=== PATIENT | female | born 1975 | race Hispanic/Latino ===

== ENCOUNTER 2017-12-30 19:15 | Observation (INO) | payer SELFPAY ==
[2017-12-30 20:28] LABS: #Basophils 0.1 thou/uL (0.0-0.2); #Eosinphils 0.1 thou/uL (0.0-0.7); #Lymphocytes 3.1 thou/uL (1.20-3.40); #Monocytes 0.6 thou/uL (0.11-0.59); #Neutrophils 6.3 thou/uL (1.40-6.50); %Basophils 0.5 % (0.0-1.0); %Eosinophils 0.9 % (0.0-10.0); %Lymphocytes 30.6 % (21.0-51.0); %Monocytes 5.5 % (0.0-10.0); %Neutrophils 62.5 % (42.0-75.0); Hemoglobin 15.4 g/dL (12.0-16.0); Mean Corpuscular HGB CONC 33.6 g/dL (32.0-36.0); Mean Corpuscular Hemoglobin 28.9 pg (27.0-31.0); Mean Platelet Volume 8.1 fL (7.4-10.4); Platelet Count 334 thou/uL (130-400); RBC Distribution Width 11.6 % (11.5-14.5); Red Blood Cell (RBC) Count 5.32 mill/uL (4.20-5.40); White Blood Cell (WBC) Count 10.1 thou/uL (4.8-10.8)
[2017-12-30 20:40] LABS: ALT (SGPT) 15 U/L (8-55); AST (SGOT) 12 U/L (5-34); Albumin 4.1 g/dL (3.5-5.0); Alkaline Phosphatase 91 U/L (40-150); Anion Gap 14 mmol/L (10-20); BUN (Urea Nitrogen) 33 mg/dL (7.0-18.7); Bilirubin, Total 0.5 mg/dL (0.2-1.2); Calc. Creatinine Clearance 0 mL/min (70-130); Calcium 9.7 mg/dL (7.8-10.44); Carbon Dioxide 28 mmol/L (22-29); Chloride 102 mmol/L (98-107); Estimated GFR-MDRD 47; Globulin 3.5 g/dL (2.4-3.5); Glucose 122 mg/dL (70-105); Lipase 8 U/L (8-78); Potassium 4.3 mmol/L (3.5-5.1); Protein, Total 7.6 g/dL (6.0-8.3); Sodium 140 mmol/L (136-145)
[2017-12-30 20:41] LABS: BHCG - Serum Negative (NEGATIVE); Pregs Control Background? CLEAR/WHITE (CLR/WHITE); Pregs Control Bar Appear? YES (CONTROL BAR)
--- NOTE | 2017-12-30 21:04 | CT ---
CT OF THE HEAD WITHOUT CONTRAST 12/30/17 COMPARISON: None. HISTORY: Left sided deficit. TECHNIQUE: Serial axial CT imaging at 5 mm intervals from vertex through the skull base without contrast. FINDINGS: The imaged maxillary sinus, anterior ethmoid air cells and frontal sinus on the left are opacified. T here is no displaced calvarial fracture. No intracranial hemorrhage, midline shift, mass effect, or v entricular enlargement. IMPRESSION: Left sided paranasal sinus disease. No intracranial hemorrhage. POS: [facility]
--- NOTE | 2017-12-30 21:05 | RAD ---
PORTABLE UPRIGHT FRONTAL CHEST RADIOGRAPH: 12/30/17 COMPARISON: 03/01/13. HISTORY: Altered mental status, hyperglycemia. FINDINGS: Mild increased linear density in the lateral left base suggests volume loss or scar. No pneumothorax or pleural fluid. No focal consolidation or alveolar edema. IMPRESSION: No acute findings. POS: [facility]
[2017-12-31] MEDS ORDERED: Ondansetron PF 4 MG/2 ML Vial IVP PRN (00:51)
[2017-12-31] MEDS ORDERED: Ondansetron ODT 4 MG TAB SL PRN (00:51)
[2017-12-31 01:40] VITALS: BMI 36.3
[2017-12-31] MEDS: Acetaminophen 325 MG TAB PO PRN ×2 (03:22→08:41)
[2017-12-31] MEDS ORDERED: Dextrose 50% Abboject 50 ML SYRINGE SLOW IVP PRN (04:32)
[2017-12-31] MEDS ORDERED: HumaLOG 300 UNITS/3 ML VIAL SC PRN (04:32)
[2017-12-31] MEDS ORDERED: Dextrose 5% in Water 1,000 ML IV PRN (04:32)
[2017-12-31] MEDS: Sodium Chloride 0.9% 1,000 ML IV SCH ×3 (05:24→22:42)
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
[2017-12-31] MEDS: HumaLOG 300 UNITS/3 ML VIAL SC PRN ×3 (06:08→18:01)
[2017-12-31] MEDS: Aspirin 81 mg Enteric Coated Tablet PO SCH (08:41)
[2017-12-31] MEDS: HumaLOG 300 UNITS/3 ML VIAL SC SCH ×2 (08:42→22:30)
[2017-12-31] MEDS: Insulin Glargine 55 UNITS in Pre-Filled Syringe 1 EACH SC SCH (08:43)
[2017-12-31] MEDS ORDERED: Non-Formulary Item 1 EACH (Insulin Detemir 100 Units/Ml [Levemir] 55 UNITS) SC SCH (09:00)
[2017-12-31] MEDS ORDERED: Liraglutide [Victoza 2-Pak] 1.2 MG SC SCH (09:00)
--- NOTE | 2017-12-31 11:57 | MRI ---
MRI BRAIN WITHOUT CONTRAST: Date: 12/31/17 HISTORY: TIA. Altered mental status. Left-sided deficit. FINDINGS: Correlation is made with the CT scan from the previous night. No restricted diffusion is seen. No evidence of infarct, hemorrhage, midline shift, or abnormal extra -axial fluid collections are noted. The ventricular size is appropriate and the basilar cisterns are patent. There is mucosal disease in the paranasal sinuses. There is fluid in the mastoid air cells. N o tonsillar herniation is seen. IMPRESSION: No evidence of acute intracranial process. POS: [facility]
[2017-12-31] MEDS ORDERED: Acetaminophen 325 MG TAB PO PRN (16:23)
--- NOTE | 2017-12-31 17:22 | PDOC.PN ---
- Subjective Encounter Start Date: 12/31/17 Encounter Start Time: 17:19 Patient sitting up in bed with several family members at home. She reports some numbness and tingling on left side, mainly her hand. She reports sugars over 600 at home. Sugars have been 300 here. She denies chest pain, shortness of breath. She underwent echo, results pending. - Objective Resuscitation Status: Resuscitation Status FULL:Full Resuscitation MAR Reviewed: Yes Vital Signs & Weight: Vital Signs (12 hours) Temp Pulse Pulse Pulse Resp BP BP 12/31/17 15:53 98.8 F 75 20 12/31/17 11:51 98.7 F 89 16 12/31/17 10:54 82 89 100/55 L 109/73 12/31/17 07:59 98.8 F 76 16 BP Pulse Ox 12/31/17 15:53 113/66 95 12/31/17 11:51 109/73 96 12/31/17 10:54 12/31/17 07:59 105/71 96 Weight Weight 186 lb 1.6 oz I&O: 12/30/17 12/31/17 01/01/18 06:59 06:59 06:59 Intake Total 300 Output Total 0 Balance 300 Result Diagrams: 12/30/17 20:15 12/30/17 20:15 Additional Labs: Accuchecks 12/31/17 12/31/17 12/31/17 16:40 10:40 05:32 POC Glucose 308 H 254 H 269 H 12/31/17 12/30/17 01:34 19:51 POC Glucose 300 H 102 Radiology Reviewed by me: Yes EKG Reviewed by me: Yes Phys Exam - Physical Examination Constitutional: NAD HEENT: PERRLA, moist MMs, sclera anicteric, 2+ tonsils Neck: no nodes, no JVD Respiratory: no wheezing, no rales, no rhonchi, clear to auscultation bilateral Cardiovascular: RRR, no significant murmur, no rub Gastrointestinal: soft, non-tender, no distention, positive bowel sounds Obese Musculoskeletal: no edema, pulses present Neurological: moves all 4 limbs 4+ on the left Lymphatic: no nodes Psychiatric: normal affect, A&O x 3 Skin: no rash, normal turgor, cap refill <2 seconds Dx/Plan (1) TIA (transient ischemic attack) Code(s): G45.9 - TRANSIENT CEREBRAL ISCHEMIC ATTACK, UNSPECIFIED Status: Acute (2) Diabetes mellitus Code(s): E11.9 - TYPE 2 DIABETES MELLITUS WITHOUT COMPLICATIONS Status: Acute (3) Acute kidney failure Status: Acute (4) Hypertension Code(s): I10 - ESSENTIAL (PRIMARY) HYPERTENSION Status: Acute - Plan cont current plan of care, plan discussed w/ family, DVT proph w/SCDs * Education given on medications and dietary recommendations, she reports elevated sugars at home and noncompliant with diabetic diet. * Continue aspirin and atorvastatin daily for TIA * Await echocardiogram results * Neurology following, appreciate recommendations * MRI brain negative for CVA * Monitor sugars and continue with insulin, adjustments pending patient progress. Add diabetic diet * MILVIA- hold lisinopril, BP stable without it and recheck BMP * IF results negative likely discharge home with outpatient follow-up and continued medical management
[2017-12-31 17:47] LABS: Anion Gap 11 mmol/L (10-20); BUN (Urea Nitrogen) 25 mg/dL (7.0-18.7); Calc. Creatinine Clearance 129 mL/min (70-130); Calcium 8.8 mg/dL (7.8-10.44); Carbon Dioxide 23 mmol/L (22-29); Chloride 104 mmol/L (98-107); Estimated GFR-MDRD 85; Glucose 358 mg/dL (70-105); Potassium 4.2 mmol/L (3.5-5.1); Sodium 134 mmol/L (136-145)
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
[2017-12-31] MEDS ORDERED: Non-Formulary Item 1 EACH (Insulin Detemir [Levemir] 30 UNIT) SQ SCH (21:00)
[2017-12-31] MEDS ORDERED: Atorvastatin Calcium 40 MG TAB PO SCH (21:00)
[2017-12-31] MEDS ORDERED: Insulin Glargine 30 UNITS in Pre-Filled Syringe 1 EACH SC SCH (21:00)
[2018-01-01 05:58] LABS: #Basophils 0.1 thou/uL (0.0-0.2); #Eosinphils 0.1 thou/uL (0.0-0.7); #Lymphocytes 2.8 thou/uL (1.20-3.40); #Monocytes 0.5 thou/uL (0.11-0.59); #Neutrophils 4.4 thou/uL (1.40-6.50); %Basophils 0.7 % (0.0-1.0); %Eosinophils 1.5 % (0.0-10.0); %Lymphocytes 35.6 % (21.0-51.0); %Monocytes 6.3 % (0.0-10.0); %Neutrophils 55.9 % (42.0-75.0); Mean Corpuscular HGB CONC 33.6 g/dL (32.0-36.0); Mean Corpuscular Hemoglobin 28.2 pg (27.0-31.0); Mean Platelet Volume 8.3 fL (7.4-10.4); Platelet Count 259 thou/uL (130-400); RBC Distribution Width 11.2 % (11.5-14.5); Red Blood Cell (RBC) Count 4.62 mill/uL (4.20-5.40); White Blood Cell (WBC) Count 7.8 thou/uL (4.8-10.8)
[2018-01-01 06:09] LABS: Anion Gap 9 mmol/L (10-20); BUN (Urea Nitrogen) 19 mg/dL (7.0-18.7); Calc. Creatinine Clearance 147 mL/min (70-130); Calcium 8.9 mg/dL (7.8-10.44); Carbon Dioxide 27 mmol/L (22-29); Cardiac Risk 4.7 (Less than 4.5); Chloride 107 mmol/L (98-107); Cholesterol 170 mg/dl (< 200 Desired); Estimated GFR-MDRD Greater than 90; Glucose 169 mg/dL (70-105); HDL Cholesterol 36 mg/dL (>60 Neg Risk); LDL Cholesterol, Calculated 92 mg/dL; Potassium 3.7 mmol/L (3.5-5.1); Sodium 139 mmol/L (136-145); Triglycerides 212 mg/dL (Less than 150)
[2018-01-01] MEDS: HumaLOG 300 UNITS/3 ML VIAL SC PRN ×2 (06:20→12:00)
[2018-01-01] MEDS: Aspirin 81 mg Enteric Coated Tablet PO SCH (08:41)
[2018-01-01] MEDS: Sodium Chloride 0.9% 1,000 ML IV SCH (08:42)
[2018-01-01] MEDS: Insulin Glargine 55 UNITS in Pre-Filled Syringe 1 EACH SC SCH (08:44)
[2018-01-01] MEDS: HumaLOG 300 UNITS/3 ML VIAL SC SCH (08:45)
[2018-01-01 11:57] VITALS: TEMP 99
[2018-01-01 13:36] VITALS: BP 136/79
--- NOTE | 2018-01-02 10:31 | DIS ---
DATE OF ADMISSION: 12/30/2017 DATE OF DISCHARGE: 01/01/2018 PRIMARY CARE PHYSICIAN: Lynn Arvizu NP CONSULTANTS: Dr. Lott, Neurology. PROCEDURES: The patient had a brain CT on 12/30/2017 which showed left-sided paranasal sinus disease . No intracranial hemorrhage. The patient had a chest x-ray that showed no acute findings. The pat ient had a brain MRI which showed no evidence of acute intracranial process. The patient had an echo cardiogram which showed ejection fraction of 60-65%, no obvious QRS or intracardiac thrombus or mass was seen. She did have some structurally normal aortic valves, trace tricuspid regurgitation. DISCHARGE DIAGNOSES: 1. Transient ischemic attack. 2. Diabetes. 3. Acute kidney injury which improved while the patient was admitted. 4. Hyperlipidemia. HOSPITAL COURSE: Pleasant 42-year-old female who was admitted through the emergency room with a past medical history of diabetes mellitus and hyperlipidemia, and presented to the ER with left handed nu mbness and tingling. Per the patient, she had woken up at 3:00 o'clock that morning and was having s ome left hand and foot numbness and tingling sensation. Reports that her blood glucose had been very high in the 600s the day before admission. She did deny any facial droop, slurred speech or any oth er symptoms of a CVA. MRI and brain CT were negative for any infarct. Echocardiogram showed an ejec tion fraction of 55-60%. Blood sugars trended down and were better controlled prior to discharge. T he patient was started on Lipitor for a triglyceride level up to 12. The patient reports the day of discharge she feels much better. Denies any numbness and tingling, able to ambulate without assistan ce. Dr. Lott with Neurology was able to see the patient on this hospitalization. It was recommend ed that she take an aspirin on a daily basis to work with her primary care doctor to reduce stress le vels, improve her risk factor modifications and follow up with the neurologist on an outpatient basis for further evaluation of possible cervical spine disease which may be some cause of her numbness an d tingling that she is experiencing in her upper extremities. Dr. Lott agreed with plan to dischar ge home if echocardiogram did not show any obvious defects. Case discussed with Dr. Song, who agreed with discharge plan. The patient was discharged home. REVIEW OF SYSTEMS: The patient was examined by me on discharge. CONSTITUTIONAL: Denied any chills, fever, denied any weakness. EYES: Denied any eye pain or vision changes. ENT: Denied any pain of ears, nose or throat. CARDIOVASCULAR: Denied any chest pain, palpitations. RESPIRATORY: Denied any shortness of breath. Denied any cough. GI: Denied any abdominal pain, denied any nausea, vomiting, diarrhea. : Female. Denied any dysuria, hematuria. MUSCULOSKELETAL: Reports that she has had some intermittent numbness and tingling to bilateral arms which is transient. She denied any falls or any injuries. SKIN: Denies any rashes, skin changes. NEUROLOGIC: Denies any focal weakness. Does report intermittent numbness and tingling to upper extr emities. PHYSICAL EXAMINATION: VITAL SIGNS: On discharge, blood pressure 140/70, pulse is 97, respirations 16, temperature 98.4, pu lse is 66. CONSTITUTIONAL: The patient was in no distress. HEAD: Head is atraumatic, normocephalic. EYES: Pupils are equally round and reactive to light. Ex traocular muscles are intact. No distinct nystagmus. ENT: Mouth exam normal. Mucous membranes are moist. NECK: Normal range of motion. Trachea is midline. No tenderness on palpation. RESPIRATORY/CHEST: Breath sounds were clear. No respiratory distress. CARDIOVASCULAR: S1, S2 heart sounds are normal. ABDOMEN: Female. Nontender on palpation. Bowel sounds are heard x4. BACK: Normal inspection, normal range of motion, no tenderness. EXTREMITIES: Upper extremities. The patient has normal range of motion. Sensation was intact. Rad ial pulse bilaterally equal. Lower extremities, normal range of motion. Inspection was normal. Mot or strength was normal. Sensation was intact. Pedal pulses equal bilaterally. NEUROLOGIC: The patient was oriented to person, place and time. Speech was normal. Cranial nerves were intact. No focal or sensory deficits. SKIN: Dry, warm and normal in color. PSYCHIATRIC: The patient had normal affect. HOME MEDICATIONS: The patient was resumed on home medications which include NovoLog 15 units subcu b.i.d., Levemir 30 units subcutaneously q.p.m., Levemir 55 subcu q.a.m., Victoza 1.2 mg subcu q.a.m., lisinopril 5 mg p.o. daily, aspirin 81 mg p.o. daily and Lipitor 40 mg p.o. daily, aspirin and Lipi tor were new. Home medications were added at this hospitalization. ALLERGIES: No known drug allergies. CONDITION: Patient's condition is stable. DISCHARGE PLAN: The patient will be discharged home. Referral; the patient instructed to follow up with primary care doctor, Lynn Arvizu NP within [address] Houser office to make a first available appointment.
== END 2018-01-01 13:23 | disposition home or self-care (01) ==
LOC: ERS 19:15 → 2SE 21:45
PROVIDERS: ADMIT Internal Medicine; ATTEND Internal Medicine
DX: G45.9 Transient cerebral ischemic attack, unspecified (principal); E11.9 Type 2 diabetes mellitus without complications; E78.5 Hyperlipidemia, unspecified; N17.9 Acute kidney failure, unspecified
CPT/HCPCS: 36415; 36416; 70450; 70551; 71045; 80048; 80053; 80061; 83690; 84703; 85025; 90471; 90686; 90732; 93005; 93306; 96360; 96361; G0008; G0009; G0378; G8978-GP-CI; G8979-GP-CH; G8987-GO-CI; G8988-GO-CI; G8989-GO-CI; G8996-GN-CH; G8997-GN-CH; G8998-GN-CH

== ENCOUNTER 2018-04-06 22:51 | Emergency (ER) | payer SELFPAY ==
[2018-04-06] MEDS ORDERED: Proparacaine 0.5% Opth 15 ML BOT ONE (23:44)
[2018-04-06] MEDS ORDERED: Fluorescein Opthalmic Strip ONE (23:44)
== END 2018-04-07 00:19 | disposition home or self-care (01) ==
LOC: ERS 22:51
DX: H10.9 Unspecified conjunctivitis (principal); H92.09 Otalgia, unspecified ear; E11.9 Type 2 diabetes mellitus without complications; E78.5 Hyperlipidemia, unspecified; Z79.4 Long term (current) use of insulin; Z79.899 Other long term (current) drug therapy
CPT/HCPCS: 99283

== ENCOUNTER 2022-03-13 12:02 | Emergency (ER) | payer SELFPAY | END 2022-03-13 13:07 | disposition home or self-care (01) | LOC: ERS 12:02 | DX: R05.9 Cough, unspecified (principal); Z20.822 Contact with and (suspected) exposure to COVID-19; E11.9 Type 2 diabetes mellitus without complications; E78.5 Hyperlipidemia, unspecified; Z79.4 Long term (current) use of insulin | CPT/HCPCS: 99283; U0003; U0005 ==

== ENCOUNTER 2024-01-04 12:05 | Emergency (ER) | payer BC, OTHER ==
[2024-01-04] MEDS ORDERED: Acetaminophen 500 MG TAB ONE (12:30)
[2024-01-04] MEDS ORDERED: Ketorolac Tromethamine 30 MG (1 mL) VIAL ONE (12:31)
[2024-01-04 12:52] LABS: #Basophils 0.06 10x3/uL (0.0-0.2); %Basophils 0.6 % (0.0-1.0); %Eosinophils 2.9 % (0.0-10.0); %Lymphocytes 24.2 % (21.0-51.0); %Monocytes 6.4 % (0.0-10.0); %Neutrophils 65.4 % (42.0-75.0); Hematocrit 37.4 % (36.0-47.0); Hemoglobin 12.3 g/dL (12.0-16.0); Mean Corpuscular HGB CONC 32.9 g/dL (32.0-36.0); Mean Corpuscular Hemoglobin 27.9 pg (27.0-31.0); Mean Corpuscular Volume 84.8 fL (78.0-98.0); Mean Platelet Volume 10.1 fL (7.4-10.4); Platelet Count 417 10x3/uL (130-400); RBC Distribution Width 11.9 % (11.5-14.5); Red Blood Cell (RBC) Count 4.41 mill/uL (4.20-5.40)
[2024-01-04] MEDS ORDERED: Boostrix 0.5 ML (Tdap) VIAL (>/=7 yrs of age) ONE (13:01)
[2024-01-04 13:17] LABS: ALT (SGPT) 10 U/L (8-55); AST (SGOT) 13 U/L (5-34); Albumin 3.3 g/dL (3.5-5.0); Alkaline Phosphatase 116 U/L (40-110); Anion Gap 13 mmol/L (10-20); BUN (Urea Nitrogen) 29 mg/dL (7.0-18.7); Bilirubin, Total 0.2 mg/dL (0.2-1.2); CRP,High Sensitivity (Inhouse) 3.64 mg/dL (< or = 0.5); Calc. Creatinine Clearance 0 mL/min (70-130); Carbon Dioxide 25 mmol/L (22-29); Chloride 102 mmol/L (98-107); Estimated GFR 43; Globulin 4.4 g/dL (2.4-3.5); Glucose 246 mg/dL (70-105); Potassium 4.8 mmol/L (3.5-5.1); Protein, Total 7.7 g/dL (6.0-8.3); Sodium 135 mmol/L (136-145)
[2024-01-04] MEDS ORDERED: Lidocaine 2% PF 5 ML VIAL ONE (13:55)
== END 2024-01-04 15:21 | disposition home or self-care (01) ==
LOC: ERS 12:05
DX: L02.611 Cutaneous abscess of right foot (principal); E11.9 Type 2 diabetes mellitus without complications; Z23 Encounter for immunization
CPT/HCPCS: 10060; 80053; 83605; 85025; 86141; 87040; 87070; 87077; 87186; 87205; 90471; 90715; 96372; J1885

== ENCOUNTER 2024-02-12 13:36 | Emergency (ER) | payer BC ==
[2024-02-12 15:24] LABS: #Basophils 0.04 10x3/uL (0.0-0.2); %Basophils 0.7 % (0.0-1.0); %Eosinophils 2.4 % (0.0-10.0); %Lymphocytes 31.1 % (21.0-51.0); %Monocytes 5.5 % (0.0-10.0); %Neutrophils 59.9 % (42.0-75.0); Hematocrit 37.1 % (36.0-47.0); Hemoglobin 12.1 g/dL (12.0-16.0); Mean Corpuscular HGB CONC 32.6 g/dL (32.0-36.0); Mean Corpuscular Hemoglobin 27.8 pg (27.0-31.0); Mean Corpuscular Volume 85.3 fL (78.0-98.0); Mean Platelet Volume 9.7 fL (7.4-10.4); Platelet Count 386 10x3/uL (130-400); RBC Distribution Width 12.4 % (11.5-14.5); Red Blood Cell (RBC) Count 4.35 mill/uL (4.20-5.40)
[2024-02-12 15:40] LABS: CRP,High Sensitivity (Inhouse) 0.28 mg/dL (< or = 0.5)
[2024-02-12 15:49] LABS: ALT (SGPT) 30 U/L (8-55); AST (SGOT) 22 U/L (5-34); Albumin 3.4 g/dL (3.5-5.0); Alkaline Phosphatase 157 U/L (40-110); Anion Gap 14 mmol/L (10-20); BUN (Urea Nitrogen) 16 mg/dL (7.0-18.7); Bilirubin, Total 0.3 mg/dL (0.2-1.2); Calc. Creatinine Clearance 0 mL/min (70-130); Calcium 9.2 mg/dL (7.8-10.44); Carbon Dioxide 28 mmol/L (22-29); Chloride 99 mmol/L (98-107); Estimated GFR 59; Globulin 3.7 g/dL (2.4-3.5); Glucose 424 mg/dL (70-105); Potassium 4.9 mmol/L (3.5-5.1); Protein, Total 7.1 g/dL (6.0-8.3); Sodium 136 mmol/L (136-145)
== END 2024-02-12 17:25 | disposition home or self-care (01) ==
LOC: ERS 13:36
DX: I73.9 Peripheral vascular disease, unspecified (principal); E11.65 Type 2 diabetes mellitus with hyperglycemia
CPT/HCPCS: 36415; 80053; 83605; 85025; 86141

== ENCOUNTER 2024-10-30 12:06 | Outpatient (CLI) | payer BC | END 2024-10-30 12:07 | disposition home or self-care (01) | LOC: BICRAD 12:06 | PROVIDERS: ATTEND Family Medicine | DX: M25.561 Pain in right knee (principal); Z91.81 History of falling ==

== ENCOUNTER 2024-12-25 07:51 | Observation (INO) | payer BC ==
[2024-12-25 08:26] LABS: #Basophils 0.03 10x3/uL (0.0-0.2); #Eosinophils 0.14 10x3/uL (0.0-0.7); #Monocytes 0.38 10x3/uL (0.11-0.59); #Neutrophils 3.98 10x3/uL (1.40-6.50); %Basophils 0.4 % (0.0-1.0); %Eosinophils 2.1 % (0.0-10.0); %Lymphocytes 31.5 % (21.0-51.0); %Monocytes 5.7 % (0.0-10.0); %Neutrophils 59.6 % (42.0-75.0); Hematocrit 36.1 % (36.0-47.0); Hemoglobin 11.9 g/dL (12.0-16.0); Mean Corpuscular Hemoglobin 27.8 pg (27.0-31.0); Mean Corpuscular Volume 84.3 fL (78.0-98.0); Platelet Count 308 10x3/uL (130-400); Red Blood Cell (RBC) Count 4.28 mill/uL (4.20-5.40); White Blood Cell (WBC) Count 6.69 10x3/uL (4.8-10.8)
[2024-12-25 08:42] LABS: ALT (SGPT) 30 U/L (Less than 34); AST (SGOT) 55 U/L (11-34); Albumin 3.4 g/dL (3.1-4.5); Alkaline Phosphatase 103 U/L (40-110); Anion Gap 12 mmol/L (10-20); BUN (Urea Nitrogen) 21 mg/dL (9.8-20.1); Bilirubin, Total 0.3 mg/dL (0.3-1.2); Calc. Creatinine Clearance 0 mL/min (70-130); Calcium 9.1 mg/dL (7.8-10.44); Carbon Dioxide 25 mmol/L (22-29); Chloride 105 mmol/L (98-107); Globulin 2.9 g/dL (2.4-3.5); Glucose 72 mg/dL (70-105); Lipase 12 U/L (8-78); Potassium 3.8 mmol/L (3.5-5.1); Sodium 138 mmol/L (136-145)
[2024-12-25] MEDS ORDERED: Ondansetron PF 4 MG/2 ML Vial ONE (08:43)
[2024-12-25 08:45] LABS: INR-International Normal Ratio 1.0; PTT 30.7 sec (22.9-36.1); Prothrombin Time 13.2 sec (12.0-14.7)
[2024-12-25] MEDS ORDERED: Iopamidol-370 76% 500 ML MDV (1 ML CHARGE) ONE (10:30)
[2024-12-25 12:45] LABS: Hematocrit 32.9 % (36.0-47.0); Hemoglobin 10.4 g/dL (12.0-16.0)
[2024-12-25] MEDS ORDERED: hydrALAZINE 20 MG/ML VIAL SLOW IVP PRN (14:05)
[2024-12-25] MEDS ORDERED: Dextrose 50% Abboject 50 ML SYRINGE SLOW IVP PRN (14:05)
[2024-12-25] MEDS ORDERED: Ondansetron PF 4 MG/2 ML Vial IVP PRN (14:05)
[2024-12-25] MEDS ORDERED: Glucagon 1 MG/ML KIT IM PRN (14:05)
[2024-12-25 15:31] LABS: Hematocrit 32.2 % (36.0-47.0); Hemoglobin 10.1 g/dL (12.0-16.0)
[2024-12-25] MEDS: TETANUS, DIPHTHERIA TOX,ADULT (TDVAX) 0.5 ML VIAL IM ONE (17:03)
[2024-12-25] MEDS: Methocarbamol 500 MG TAB PO PRN (17:30)
[2024-12-25 18:13] VITALS: BMI 37.0
[2024-12-25] MEDS: Senokot S 8.6-50 MG TAB PO SCH (19:45)
[2024-12-25] MEDS: Transdermal Patch Removal TOP SCH (19:46)
[2024-12-25] MEDS: Insulin Glargine 30 UNITS/0.3 ML VIAL SC SCH (20:34)
[2024-12-25] MEDS: Acetaminophen 325 MG TAB PO PRN (20:37)
[2024-12-26 06:36] LABS: #Basophils 0.04 10x3/uL (0.0-0.2); #Eosinophils 0.18 10x3/uL (0.0-0.7); #Monocytes 0.46 10x3/uL (0.11-0.59); #Neutrophils 3.08 10x3/uL (1.40-6.50); %Basophils 0.7 % (0.0-1.0); %Eosinophils 3.2 % (0.0-10.0); %Lymphocytes 32.3 % (21.0-51.0); %Monocytes 8.2 % (0.0-10.0); %Neutrophils 55.1 % (42.0-75.0); Hematocrit 32.1 % (36.0-47.0); Hemoglobin 10.1 g/dL (12.0-16.0); Mean Corpuscular Hemoglobin 27.6 pg (27.0-31.0); Mean Corpuscular Volume 87.7 fL (78.0-98.0); Platelet Count 269 10x3/uL (130-400); Red Blood Cell (RBC) Count 3.66 mill/uL (4.20-5.40); White Blood Cell (WBC) Count 5.60 10x3/uL (4.8-10.8)
[2024-12-26 06:54] LABS: Anion Gap 11 mmol/L (10-20); BUN (Urea Nitrogen) 18 mg/dL (9.8-20.1); Calc. Creatinine Clearance 131 mL/min (70-130); Calcium 8.4 mg/dL (7.8-10.44); Carbon Dioxide 28 mmol/L (22-29); Chloride 102 mmol/L (98-107); Glucose 82 mg/dL (70-105); Potassium 3.7 mmol/L (3.5-5.1); Sodium 137 mmol/L (136-145)
[2024-12-26] MEDS: Insulin Glargine 30 UNITS/0.3 ML VIAL SC SCH (09:15)
[2024-12-26] MEDS: Enoxaparin 40 MG (0.4 mL) SYRINGE SC SCH (09:16)
[2024-12-27 12:01] VITALS: BP 115/82; TEMP 98.2
== END 2024-12-27 12:09 | disposition home or self-care (01) ==
LOC: ERS 07:51 → ERHOLD 14:05 → SURG B 16:21
PROVIDERS: ADMIT Surgery; ATTEND Surgery
DX: S22.31XA Fracture of one rib, right side, initial encounter for closed fracture (principal); V87.7XXA Person injured in collision between other specified motor vehicles (traffic), initial encounter; E78.5 Hyperlipidemia, unspecified; E11.9 Type 2 diabetes mellitus without complications; Z79.82 Long term (current) use of aspirin; Z79.4 Long term (current) use of insulin; Z79.899 Other long term (current) drug therapy
CPT/HCPCS: 36415; 36416; 70450; 71045; 71260; 72125; 74177; 80048; 80053; 80307; 83605; 83690; 84484; 85025; 85610; 85730; 86850; 86900; 86901; 93005; 94760; 96374; 96375; G0390; J1650; J1815; J2270; J2405; J3010; Q9967